=== PATIENT | female | born 1950 | race Caucasian/White ===

== ENCOUNTER → 2020-07-24 | Outpatient (CLI) | payer MEDICARE ==
--- NOTE | 2020-07-26 12:13 | MM ---
Reason for exam: screening (asymptomatic). Last mammogram was performed 5 years and 4 months ago. History: Patient is postmenopausal and had first child at age 36. Family history of breast cancer in aunt at age 50 and breast cancer in sister at age 66. Took hormonal contraceptives for 2 years. Took estrogen for 1 year 1 month beginning at age 57. Took progesterone for 1 year 1 month beginning at age 57. Physical Findings: A clinical breast exam by your physician is recommended on an annual basis and results should be correlated with mammographic findings. MG 3D Screening Mammo W/Cad Bilateral CC and MLO view(s) were taken. Prior study comparison: March 13, 2015, bilateral MG screening mammo w CAD. The breast tissue is heterogeneously dense. This may lower the sensitivity of mammography. Linear calcifications developed right upper outer quadrant. Magnification views recommended to exclude a subtle group of calcifications here. ASSESSMENT: Incomplete: need additional imaging evaluation, BI-RAD 0 RECOMMENDATION: Special view mammogram of the right breast. (magnification) If lesion persists on supplemental views, image directed ultrasound is recommended. [facility] will attempt to contact patient to return for supplemental views and ultrasound if indicated.
== END | disposition home or self-care (01) ==
LOC: RADMAMWWP 12:58
PROVIDERS: ATTEND Family Medicine
DX: Z12.31 Encounter for screening mammogram for malignant neoplasm of breast (principal); Z78.0 Asymptomatic menopausal state; Z80.3 Family history of malignant neoplasm of breast
CPT/HCPCS: 77063; 77067

== ENCOUNTER → 2020-07-27 | Outpatient (CLI) | payer MEDICARE ==
--- NOTE | 2020-07-27 11:48 | MM ---
Reason for exam: additional evaluation requested from abnormal screening. Last mammogram was performed less than 1 month ago. History: Patient is postmenopausal and had first child at age 36. Family history of breast cancer in aunt at age 50 and breast cancer in sister at age 66. Took hormonal contraceptives for 2 years. Took estrogen for 1 year 1 month beginning at age 57. Took progesterone for 1 year 1 month beginning at age 57. Physical Findings: Nurse did not find any significant physical abnormalities on exam. MG 3D Work Up W/Cad RT CC with magnification, ML with magnification, and ML view(s) were taken of the right breast. Prior study comparison: July 24, 2020, bilateral MG 3d screening mammo w/cad. March 13, 2015, bilateral MG screening mammo w CAD. Finding: There are intermediate concern, suspicious coarse heterogeneous calcifications in the upper outer quadrant of the right breast. New finding since March 13, 2015. These results were verbally communicated with the patient and result sheet given to the patient on 07/27/20. ASSESSMENT: Suspicious, BI-RAD 4 RECOMMENDATION: Stereotactic core biopsy of the right breast. Called Dr. Maravilla's office with mammographic findings and has scheduled an appointment for the patient for 09/06/20 at 4:[address] Chaudhari. Biopsy scheduled for 08/07/20 at 8:00. PRELIMINARY REPORT CALLED AND FAXED TO DR. CHAUDHARI ON 07/27/20.
== END | disposition home or self-care (01) ==
LOC: RADMAMWWP 09:08
PROVIDERS: ATTEND Family Medicine
DX: R92.8 Other abnormal and inconclusive findings on diagnostic imaging of breast (principal); Z80.3 Family history of malignant neoplasm of breast; Z78.0 Asymptomatic menopausal state
CPT/HCPCS: 77065; G0279; 77061

== ENCOUNTER → 2020-08-07 | Day surgery (SDC) | payer MEDICARE ==
[2020-08-07 07:16] VITALS: RESP 16
[2020-08-07 09:15] VITALS: BP 149/84; PULSE 99; TEMP 98.2
--- NOTE | 2020-08-07 11:52 | MM ---
EXAMINATION TYPE: MG stereo VAD BX RT DATE OF EXAM: 08/07/2020 COMPARISON: NONE CLINICAL HISTORY: Right breast calcifications TECHNIQUE: Stereotactic guided core biopsy of right upper outer breast at middle depth. FINDINGS: The procedure of stereotactic guided core biopsy was explained to the patient. Benefits, alternatives, and risks were discussed. An informed consent was then obtained. The shortness pathway for biopsy was chosen. Shortness pathway was above approach. I performed the localization with stereo pair imaging. The patient was normally prepped. Lidocaine was administered to anesthetize the skin. Lidocaine with epinephrine was administered to anesthetize the deeper tissues. A vacuum assisted biopsy gun was used to obtain multiple core samples. The patient tolerated the procedure well without any immediate complication. The patient was kept in the radiology department for short stay after the procedure and then discharged home in stable condition. Targeted calcifications are identified in specimen mammogram. Post biopsy mammogram shows the clip to appear in satisfactory position relative to the targeted area of concern on the preprocedure images. IMPRESSION: SUCCESSFUL, UNCOMPLICATED STEREOTACTIC GUIDED CORE BIOPSY OF AREA OF CONCERN IN THE right BREAST, FULL PATHOLOGY RESULTS TO FOLLOW. 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 See Surgical Pathology Cancer Case Summary and comment. Recommendation Surgical consult of the right breast. MIRIAM
== END ==
LOC: RADMAMWWP 07:01
PROVIDERS: ATTEND Surgery
DX: C50.911 Malignant neoplasm of unspecified site of right female breast (principal); Z17.0 Estrogen receptor positive status [ER+]
CPT/HCPCS: 88305; 88342; 88341; 19081; A4648; J2001

== ENCOUNTER 2020-09-22 06:15 | Day surgery (SDC) | payer MEDICARE ==
[2020-09-21 09:11] VITALS: BMI 40.3
--- NOTE | 2020-09-21 14:14 | P.GSHP ---
History of Present Illness H&P Date: 09/21/20 Chief Complaint: Right breast cancer 69-year-old female seen in early August. Patient with mammogram showing atypical calcifications right breast. Patient underwent stereotactic core biopsy of a 2.5 mm area of calcifications. Biopsy showed intermediate grade DCIS. ER/NC po sitive. She underwent genetic testing because of family history of breast cancer and her sister which was negative. Past Medical History Past Medical History: Asthma, Hypertension, Thyroid Disorder Additional Past Medical History / Comment(s): DCIS RT BREAST History of Any Multi-Drug Resistant Organisms: None Reported Past Surgical History: Tonsillectomy Additional Past Surgical History / Comment(s): lymph node removed left axillary 2007. LT LITTLE FINGER SX. COLONOSCOPY Past Anesthesia/Blood Transfusion Reactions: No Reported Reaction Smoking Status: Never smoker - Past Family History Father Family Medical History: Cancer Sister(s) Family Medical History: Cancer Medications and Allergies Home Medications Medication Instructions Recorded Confirmed Type Albuterol Inhaler [Ventolin Hfa 1 each INHALATION DIRECTED PRN 07/28/20 09/21/20 History Inhaler] Montelukast [Singulair] 10 mg PO HS 07/28/20 09/21/20 History Thyroid,Pork [Oscar Thyroid] 30 mg PO DAILY 07/28/20 09/21/20 History Allergies Allergy/AdvReac Type Severity Reaction Status Date / Time No Known Allergies Allergy Verified 09/21/20 09:01 Surgical - Exam Physical exam: General: Well-developed, well-nourished HEENT: Normocephalic, sclerae nonicteric Right breast: Recent scar noted, no masses, no adenopathy Left breast: No masses, no adenopathy Abdomen: Nontender, nondistended Extremities: No edema Neuro: Alert and oriented Assessment and Plan (1) Ductal carcinoma in situ (DCIS) of right breast Narrative/Plan: Will proceed with wire localization right breast lumpectomy for intermediate grade DCIS right breast. Risks of bleeding, infection, scarring, possible need for further surgery, anticipation for postoperative radiation therapy, nerve injury, numbness, dimpling. Patient understands and wishes to proceed. Status: Acute Code(s): D05.11 - INTRADUCTAL CARCINOMA IN SITU OF RIGHT BREAST SNOMED Code(s): 016386352
--- NOTE | 2020-09-21 14:17 | P.NAPBC ---
NAPBC Queries - NAPBC Queries Was patient's case review presented at [facility] tumor board? If no, comment.: Yes Was patient's pathology reviewed at [facility]? If no, comment.: Yes Was breast conservation surgery offered? If no, comment.: Yes Was sentinel node biopsy offered? If no, comment.: Yes Was diagnosis confirmed by percutaneous core biopsy? If no, comment.: Yes Is patient mastectomy patient?: No Was a preop referral to reconstructive surgeon offered?: Yes Clinical Stage: 0
[~2020-09-22 06:15] MED LIST: ACETAMINOPHEN TAB 500 MG TAB PO PRN; HEPARIN SODIUM,PORCINE/PF 5,000 UNIT/0.5 ML SYRINGE SQ PRN; Pre Op ABX Message 1 EACH MISC MISCELLANE ONE
[2020-09-22] MEDS ORDERED: ALPRAZolam 0.25 MG TAB ONE (07:06)
[2020-09-22] MEDS ORDERED: ALPRAZolam 0.25 MG TAB PO ONE (07:06)
[2020-09-22] MEDS ORDERED: LIDOCAINE 1% (10MG/ML) FOR IV START INTRADERMA ONE (07:09)
[2020-09-22] MEDS ORDERED: LACTATED RINGERS 1,000 ML IV ONE (07:09)
[2020-09-22] MEDS ORDERED: LIDOCAINE 1% INJ 10MG/ML (20 ML MDV) SQ ONE (07:50)
[2020-09-22] MEDS ORDERED: ONDANSETRON 4 MG/2 ML VIAL ONE (08:13)
[2020-09-22] MEDS ORDERED: DEXAMETHASONE SOD PHOSPHATE 4 MG/ML 1 ML VIAL IVP ONE (08:30)
[2020-09-22] MEDS ORDERED: ONDANSETRON 4 MG/2 ML VIAL IVP ONE (08:30)
[2020-09-22] MEDS ORDERED: LIDOCAINE 1% INJ 10MG/ML (20 ML MDV) ONE (09:10)
[2020-09-22] MEDS ORDERED: fentaNYL (PF) 50 MCG/ML 2 ML AMP ONE (09:10)
[2020-09-22] MEDS ORDERED: PROPOFOL 10 MG/ML 20 ML VIAL IV ONE (09:10)
[2020-09-22] MEDS ORDERED: SUCCINYLCHOLINE CHLORIDE 100 MG/5 ML SYR IV ONE (09:10)
[2020-09-22] MEDS ORDERED: MIDAZOLAM 2 MG/2 ML VIAL ONE (09:10)
[2020-09-22] MEDS ORDERED: SODIUM CHLORIDE 0.9% 100 ML with ceFAZolin 2,000 MG IV ONE ×2 (09:14)
[2020-09-22] MEDS ORDERED: BUPIVACAINE (PF) 0.5% 30 ML VIAL SQ ONE (09:45)
[2020-09-22] MEDS ORDERED: Acetaminophen-Codeine 300-30mg TAB PO PRN (10:18)
[2020-09-22] MEDS ORDERED: NALOXONE 0.4 MG/ML 1 ML VIAL IV PRN (10:18)
[2020-09-22 10:20] VITALS: TEMP 98.6
--- NOTE | 2020-09-22 10:24 | P.OP ---
Date of Procedure: 09/22/20 Procedure(s) Performed: PREOPERATIVE DIAGNOSIS: Right breast cancer POSTOPERATIVE DIAGNOSIS: Same PROCEDURE: Right Breast wire localization lumpectomy SURGEON: Fara EBL: 5 mL ANESTHESIA: General COMPLICATIONS: None OPERATIVE PROCEDURE: Patient was placed on the operating room table in the supine position. The wire entrance site was then addressed. This was present at the 10:00 location. A curvilinear incision was made adjacent to the wire entrance site. I followed the wire down into the breast tissue. An adequate lumpectomy specimen then took place around the wire. Margins of 1.5-2 cm worth attempted to be achieved. The specimen was then painted the appropriate 6 colors. Clips were used to identify the lumpectomy cavity. The clip was confirmed to be within the lumpectomy specimen by radiology. The subcutaneous tissues were closed using 3-0 Vicryl sutures. The skin was closed using a running 4-0 Monocryl stitch. Skin glue and sterile dressings were then applied. DISPOSITION: Stable to recovery room
[2020-09-22 10:36] VITALS: RESP 16
[2020-09-22 11:07] VITALS: BP 125/77; PULSE 88
--- NOTE | 2020-09-25 13:53 | MM ---
EXAMINATION TYPE: MG pre op needle loc RT DATE OF EXAM: 09/22/2020 COMPARISON: NONE CLINICAL HISTORY: Abnormal biopsy TECHNIQUE: Needle localization with wire placement and surgical excision of area of concern in the ri t breast. FINDINGS: The procedure of needle localization with wire placement and than surgical excision was exp lained to the patient. Benefits, alternatives, and risks were discussed. An informed consent was th en obtained. The shortest pathway for procedure was chosen. Shortest pathway was superior approach. The overlying skin was prepped and draped in usual sterile fashion. Lidocaine buffered with bicarbonate was used as anesthetic into the skin and subcutaneous tissue up to the level of area of concern. A 5 cm needl e was used. It was placed via a superior approach under mammographic guidance. Subsequent 90 degree s mammogram show the needle to be in satisfactory position relative to the targeted area. At this po int, wire was placed and the needle was withdrawn. The wire was fixed to patient's skin. Images wer e marked for surgeon. The patient tolerated the procedure well without any immediate complication. The patient was kept in the radiology department for short stay after the procedure and then taken to surgery for surgical e xcision. The targeted stereotactic core marker and wire are identified in specimen mammogram. The p atient was kept in hospital for short stay after the procedure and then discharged home in stable con dition. IMPRESSION: 1. Successful needle localization and excision. Recommendations: 1. Recommendations are pending pathology results.
== END 2020-09-22 11:20 | disposition home or self-care (01) ==
LOC: OR 06:15
PROVIDERS: ATTEND Surgery
DX: C50.911 Malignant neoplasm of unspecified site of right female breast (principal); I10 Essential (primary) hypertension; E07.9 Disorder of thyroid, unspecified; Z79.890 Hormone replacement therapy
CPT/HCPCS: 19281; 19301; 76098; J2250; J1100; J2405; J0690; J2001; J3010; J0330; J2704; J1644; 88307

== ENCOUNTER → 2021-05-02 | Outpatient (CLI) | payer MEDICARE ==
--- NOTE | 2021-05-02 10:38 | MM ---
Reason for exam: follow-up at short interval from prior study. Last mammogram was performed 9 months ago. History: Patient is postmenopausal, has history of breast cancer at age 69, and had first child at age 36. Family history of breast cancer in aunt at age 50 and breast cancer in sister at age 66. Malignant MG pre op needle loc RT of the right breast, September 22, 2020. Lumpectomy of the right breast, September 22, 2020. Malignant MG stereo VAD BX RT of the right breast, August 07, 2020. Took hormonal contraceptives for 2 years. Took estrogen for 1 year 1 month beginning at age 57. Took progesterone for 1 year 1 month beginning at age 57. Physical Findings: A clinical breast exam by your physician is recommended on an annual basis and results should be correlated with mammographic findings. MG 3D Diag Mammo W/Cad LUCINDA Bilateral CC and MLO view(s) were taken. Prior study comparison: July 27, 2020, right breast MG 3d work up w/cad RT. July 24, 2020, bilateral MG 3d screening mammo w/cad. The breast tissue is heterogeneously dense. This may lower the sensitivity of mammography. Previous mammotome biopsy in the right breast. Stable post lumpectomy changes right breast. No significant new findings when compared with previous films. These results were verbally communicated with the patient and result sheet given to the patient on 05/02/21. ASSESSMENT: Benign, BI-RAD 2 RECOMMENDATION: Follow-up diagnostic mammogram of both breasts in 1 year.
--- NOTE | 2021-05-02 12:40 | BD ---
EXAMINATION TYPE: Axial Bone Density DATE OF EXAM: 05/02/2021 COMPARISON: NONE CLINICAL HISTORY: 70 years year old Female. ICD-10 CODE: N95.1 MENOPAUSAL Height: 4 FT 6 IN 1/4 IN Weight: 183 FRAX RISK QUESTIONS: Alcohol (3 or more units per day): NO Family History (Parent hip fracture): NO Glucocorticoids (More than 3mos): NO (Ex: prednisone, prednisolone, methylprednisolone, dexamethasone, and hydrocortisone). History of Fracture in Adulthood: NO Secondary Osteoporosis: 1. Type 1 Diabetes: TYPE 2 2. Hyperthyroidism: NO 3. Menopause before 45: NO 4. Malnutrition: NO 5. Chronic liver disease: FATTY Rheumatoid Arthritis: NO Current Tobacco Use: NO RISK FACTORS HISTORY OF: Surgery to Spine/Hip(right/left)/Wrist (right/left): NO Family History of Osteoporosis: YES Active: NO Diet low in dairy products/other sources of calcium: NO Postmenopausal woman: YES Take estrogen and/or progesterone medications: NONE NOW Lost more than 2 inches in height since high school: NO Frequent falls: NO Poor Health: FAIR Hyperparathyroidism: NO Adrenal Insufficiency: NO MEDICATIONS: Thyroid Medications: YES Which medication: LEVOTHYROXINE How Long: SINCE AGE 32 Additional Medications: LEVOTHYROXINE, HORMONE SOLOMON, BLOOD PRESSURE MEDS Additional History: BREAST CANCER 2020 EXAM MEASUREMENTS: Bone mineral densitometry was performed using the [employer] System. Bone mineral density as measured about the Lumbar spine is: ----- L1-L4(G/cm2): 1.087 T Score Values are as follows: ----- L1: -0.6 ----- L2: -1.2 ----- L3: -0.6 ----- L4: -0.8 ----- L1-L4: -0.8 BASELINE Bone mineral density about the R hip (g/cm2): 0.876 Bone mineral density about the L hip (g/cm2): 0.856 T Score values are as follows: -----R Neck: -1.2 -----L Neck: -1.3 -----R Total: -0.4 -----L Total: -0.2 BASELINE FRAX%s: The graph provided illustrates a 7.9 % chance for a major osteoporotic fx and a 0.8 % chance for the hips probability for fx in 10 years time. IMPRESSION: No evidence for osteoporosis or osteopenia at this time. NOTE: T-SCORE=SD OF THE YOUNG ADULT MEAN.
== END | disposition home or self-care (01) ==
LOC: RADMAMWWP 09:53
PROVIDERS: ATTEND Family Medicine
DX: R92.8 Other abnormal and inconclusive findings on diagnostic imaging of breast (principal); Z78.0 Asymptomatic menopausal state
CPT/HCPCS: 77080; 77066; G0279; 77062

== ENCOUNTER → 2022-05-03 | Outpatient (CLI) | payer MEDICARE ==
--- NOTE | 2022-05-06 18:26 | MM ---
Reason for Exam: Hx of breast cancer, conservation therapy. Last screening mammogram was performed 12 month(s) ago. Patient History: Menarche at age 15. First Full-Term at age 36. Late child-bearing (after 30). Postmenopausal. Breast cancer, right, age 69. Estrogen for 1 year, 1 month, from age 57 until age 58. Progesterone for 1 year, 1 month, from age 57 until age 58. Patient used Hormonal Contraceptives for 2 years. Currently using Tamoxifen, starting at age 69. 09/22/2020, Lumpectomy on the Right side. 09/22/2020, Malignant Core Biopsy on the right side. 08/07/2020, Malignant Core Biopsy on the right side. Maternal aunt had breast cancer, age 50. Sister had breast cancer, age 66. Prior Study Comparison: 07/24/2020 Bilateral Screening Mammogram, [facility]. 07/27/2020 Right Diagnostic Mammogram, [facility]. 05/02/2021 Bilateral Diagnostic Mammogram, [facility]. Tissue Density: There are scattered fibroglandular densities. Findings: Analyzed By CAD. Redemonstrated post surgical change right breast. Asymmetric density central left cc view at a middle depth remains unchanged as well. No significant change from prior exams. Overall Assessment: Benign, BI-RAD 2 Management: Screening Mammogram of both breasts in 1 year. 1. Patient should continue monthly self breast exams. 2. A clinical breast exam by your physician is recommended on an annual basis. 3. This exam should not preclude additional follow-up of suspicious palpable abnormalities. Electronically signed and approved by: Sunita Chong M.D. Radiologist
== END | disposition home or self-care (01) ==
LOC: RADMAMWWP 10:56
PROVIDERS: ATTEND Internal Medicine Hematology & Oncology
DX: Z12.31 Encounter for screening mammogram for malignant neoplasm of breast (principal); Z78.0 Asymptomatic menopausal state; Z80.3 Family history of malignant neoplasm of breast; Z85.3 Personal history of malignant neoplasm of breast
CPT/HCPCS: 77063; 77067

== ENCOUNTER → 2023-05-29 | Outpatient (CLI) | payer MEDICARE ==
--- NOTE | 2023-05-30 09:33 | MM ---
Reason for Exam: Screening (asymptomatic). Last mammogram was performed 1 year(s) and 1 month(s) ago. Patient History: Menarche at age 15. First Full-Term at age 36. Late child-bearing (after 30). Postmenopausal. Breast cancer, right, age 69. Estrogen for 1 year, 1 month, from age 57 until age 58. Progesterone for 1 year, 1 month, from age 57 until age 58. Patient used Hormonal Contraceptives for 2 years. Currently using Tamoxifen, starting at age 69. 09/22/2020, Lumpectomy on the Right side. 09/22/2020, Malignant Core Biopsy on the right side. 08/07/2020, Malignant Core Biopsy on the right side. Maternal aunt had breast cancer, age 50. Sister had breast cancer, age 66. Prior Study Comparison: 07/27/2020 Right Diagnostic Mammogram, [facility]. 05/02/2021 Bilateral Diagnostic Mammogram, [facility]. 05/03/2022 Bilateral MG 3D screening mammo w/cad, [facility]. Tissue Density: There are scattered areas of fibroglandular density. Findings: Analyzed By CAD. There is no suspicious group of microcalcifications or new suspicious mass in either breast. Distortion and postbiopsy changes involving the right breast are stable. Area of asymmetric attenuation breast tissue within the central margin of the left breast is stable dating back to multiple prior exams. Overall Assessment: Benign, BI-RAD 2 Management: Screening Mammogram of both breasts in 1 year. . Patient should continue monthly self-breast exams. A clinical breast exam by your physician is recommended on an annual basis. This exam should not preclude additional follow-up of suspicious palpable abnormalities. Note on Ro scores and lifetime risk: 1. A Ro score greater than 3% is considered moderate risk. If this is the case, consider specialist referral to assess eligibility for a risk reducing agent. 2. If overall lifetime risk for the development of breast cancer is 20% or higher, the patient may qualify for future screening with alternating mammogram and breast MRI. Electronically signed and approved by: Francisco Silva M.D. Radiologis
== END | disposition home or self-care (01) ==
LOC: RADMAMWWP 10:35
PROVIDERS: ATTEND Family Medicine
DX: Z12.31 Encounter for screening mammogram for malignant neoplasm of breast (principal); Z78.0 Asymptomatic menopausal state; Z80.3 Family history of malignant neoplasm of breast
CPT/HCPCS: 77063; 77067

== ENCOUNTER → 2023-07-07 | Outpatient (CLI) | payer MEDICARE ==
--- NOTE | 2023-07-08 16:43 | BD ---
EXAMINATION TYPE: Axial Bone Density DATE OF EXAM: 07/07/2023 CLINICAL HISTORY: 72 years old Female. ICD-10 CODE: M85.88 OTH DISRD OF BONE DENSITY AND STRUCTURE, OT Height: 54.5 Weight: 171 FRAX RISK QUESTIONS: Family History (Parent hip fracture): no History of Fracture in Adulthood: no Secondary Osteoporosis: no 3. Menopause before 45: 54 RISK FACTORS HISTORY OF: Surgery to Spine/Hip(right/left)/Wrist (right/left): no MEDICATIONS: Thyroid Medications: yes Which medication: Levothyroxine How Lon+ years Osteoporosis Medications: no EXAM MEASUREMENTS: Bone mineral densitometry was performed using the [employer] System. Bone mineral density as measured about the Lumbar spine is: ----- L1-L4(G/cm2): 1.028 T Score Values are as follows: ----- L1: -1.5 ----- L2: -1.6 ----- L3: -1.1 ----- L4: -1.1 ----- L1-L4: -1.3 Z Score Values are as follows: ----- L1: -0.2 ----- L2: -0.3 ----- L3: 0.2 ----- L4: 0.2 ----- L1-L4: 0.0 Bone mineral density has: Decreased -5.4% since study of: 05/02/2021 Bone mineral density about the R hip (g/cm2): 0.931 Bone mineral density about the L hip (g/cm2): 0.920 T Score values are as follows: -----R Neck: -1.3 -----L Neck: -1.3 -----R Total: -0.6 -----L Total: -0.7 Z Score values are as follows: -----R Neck: 0.2 -----L Neck: 0.2 -----R Total: 0.6 -----L Total: 0.5 Bone mineral density has: Decreased -4.2% since study of: 05/02/2021 FRAX%s: The graph provided illustrates a 8.4% chance for a major osteoporotic fx and a 1.0% chance fo r the hips probability for fx in 10 years time. IMPRESSION: Normal (Values between +1 and -1 indicate normal bone mass). Consider repeating this study in 5 year s or sooner if there is some new clinical indication. NOTE: T-SCORE=SD OF THE YOUNG ADULT MEAN.
== END | disposition home or self-care (01) ==
LOC: RADBDWWP 12:43
PROVIDERS: ATTEND Internal Medicine Hematology & Oncology
DX: Z85.89 Personal history of malignant neoplasm of other organs and systems (principal); D05.11 Intraductal carcinoma in situ of right breast; N62 Hypertrophy of breast; I10 Essential (primary) hypertension; E78.5 Hyperlipidemia, unspecified; E11.9 Type 2 diabetes mellitus without complications; Z78.0 Asymptomatic menopausal state; Z71.3 Dietary counseling and surveillance
CPT/HCPCS: 77080

== ENCOUNTER → 2024-06-14 | Outpatient (CLI) | payer MEDICARE ==
--- NOTE | 2024-06-15 06:57 | MM ---
Reason for Exam: Screening (asymptomatic). Last screening mammogram was performed 12 month(s) ago. Patient History: Menarche at age 15. First Full-Term at age 36. Late child-bearing (after 30). Postmenopausal. Breast cancer, right, age 69. Estrogen for 1 year, 1 month, from age 57 until age 58. Progesterone for 1 year, 1 month, from age 57 until age 58. Patient used Hormonal Contraceptives for 2 years. Currently using Tamoxifen, starting at age 69. 09/22/2020, Lumpectomy on the Right side. 09/22/2020, Malignant Core Biopsy on the right side. 08/07/2020, Malignant Core Biopsy on the right side. Maternal aunt had breast cancer, age 50. Sister had breast cancer, age 66. Prior Study Comparison: 05/02/2021 Bilateral Diagnostic Mammogram, [facility]. 05/03/2022 Bilateral MG 3D screening mammo w/cad, [facility]. 05/29/2023 Bilateral MG 3D screening mammo w/cad, [facility]. Tissue Density: There are scattered areas of fibroglandular density. Findings: Analyzed By CAD. Surgical changes outer upper aspect right breast are redemonstrated. There is no suspicious group of microcalcifications or new suspicious mass in either breast. Overall Assessment: Benign, BI-RAD 2 Management: Screening Mammogram of both breasts in 1 year. . Patient should continue monthly self-breast exams. A clinical breast exam by your physician is recommended on an annual basis. This exam should not preclude additional follow-up of suspicious palpable abnormalities. Note on Ro scores and lifetime risk: 1. A Ro score greater than 3% is considered moderate risk. If this is the case, consider specialist referral to assess eligibility for a risk reducing agent. 2. If overall lifetime risk for the development of breast cancer is 20% or higher, the patient may qualify for future screening with alternating mammogram and breast MRI. [facility], , 06/15/2024 6:54 AM. Electronically signed and approved by: Romel Adames M.D.
== END | disposition home or self-care (01) ==
LOC: RADMAMWWP 15:28
PROVIDERS: ATTEND Family Medicine
DX: Z12.31 Encounter for screening mammogram for malignant neoplasm of breast (principal); R92.323 Mammographic fibroglandular density, bilateral breasts; Z92.0 Personal history of contraception; Z80.3 Family history of malignant neoplasm of breast; Z78.0 Asymptomatic menopausal state
CPT/HCPCS: 77063; 77067